=== PATIENT | male | born 1960 | race Caucasian/White ===

== ENCOUNTER → 2016-08-23 | Outpatient (CLI) | payer OTHER ==
[~2016-08-23] MED LIST: HYDR-2666 PO; HYDR12.58 PO; IOHEXOL 180 MG/ML 10 ML VIAL. ONE; LOSA1TAB16 PO; NAPR375T3 PO; methylPREDNISolone ACETATE 40 MG/ML VIAL. ONE; methylPREDNISolone ACETATE 80 MG/ML VIAL. ONE
--- NOTE | 2016-08-24 03:28 | PAIN ---
DATE OF SERVICE: 08/23/2016 INITIAL CONSULTATION CHIEF COMPLAINT: Neck and left upper extremity pain. HISTORY OF PRESENT ILLNESS: This is a 56-year-old male who presents with history of pain for about 3 months, increasing, not a result of any specific injury or accident he is aware of, but occurred more suddenly when he was installing an attic fan, installing the plastic and the insulation on the fan with using his arms up over his head. The patient reports now it is sharp alternating with numbness in the thumb and first and second fingers on his left hand, worse with activity, worse with rotation and motion of the shoulder and the arm and with some moderate weakness in the left arm. He has not been dropping things, but his arm does feel more weaker and fatigability higher in the left arm than the right. The patient reports it awakens him from sleep, at least once or twice at night with pain radiating into the left arm. Does not affect his bowel or bladder control or his ability to walk, but is significantly altering what he can do with his left upper extremity, especially with repetitive motions. The patient reports it radiates into the posterior aspect of the upper arm and to the forearm and hand, again with numbness and tingling in the thumb and first and second fingers on the left side only. The patient reports worse with activity, worse with carrying items, worse with driving if he uses his left arm to steer. The patient did have a CT scan of the cervical spine showing moderately large left paramidline and foraminal disk herniation at C6-C7 and that was on 07/12/2016. The patient reports he has had no other treatments, exercise, physical therapies or chiropractic treatments at this time to treat the pain. He has been taking hydrocodone as well as Naprosyn, which both help decrease the pain by about 50% each. The patient reports his disability rate from 0 to 10, 10 being the worst, it is anywhere from 4-10 with family and home responsibilities, recreation, social activity, occupation, 8 with sexual behavior, 5 with self care and 6 with life support activities. 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 OTHER SURGERIES: Include left ankle surgery with pinning in 1983. CURRENT MEDICATIONS: Include losartan/hydrochlorothiazide, hydrocodone, naproxen. ALLERGIES: The patient is allergic to sulfa. FAMILY HISTORY: Significant for no major medical problems or conditions he is aware of. SOCIAL HISTORY: The patient does not smoke. He stopped drinking alcohol since he started taking naproxen. He is single, lives locally. REVIEW OF SYSTEMS: The patient's review of systems is positive for those items mentioned in the history of present illness, is complete, full and well documented on the patient's chart. All systems reviewed and otherwise negative. PHYSICAL EXAMINATION: VITAL SIGNS: Today, the patient's blood pressure is 164/100, pulse 69, respirations 18, temperature 98.0 degrees Fahrenheit. Height is 6 feet and weight is 223 pounds. GENERAL: The patient is awake, alert, oriented, appropriate, very pleasant demeanor. HEENT: Shows normocephalic, atraumatic. Extraocular movements are intact and symmetrical. Oral cavity shows mucous membranes are moist and pink. Dentition is intact. NECK: Shows anterior throat supple without palpable lymphadenopathy noted. Swallow reflex is symmetrical. CHEST: Shows normal on inspection. Breath sounds are clear to auscultation bilaterally. HEART: Shows S1 and S2 clear. No murmurs are auscultated. ABDOMEN: Soft, nontender, and nondistended. No palpable organomegaly is noted. No rebound or guarding demonstrated. BACK: Shows spine grossly in midline. Cervical lordotic curvature is intact and normal as is thoracic kyphotic curvature and lumbar lordotic curvature. No previous bruises, lesions, rashes or scars are noted. Cervical paraspinous musculature shows symmetrical on inspection, with palpation is moderately tender in the inferior aspect of the cervical paraspinous muscles on the left only, but is not asymmetric without atrophy, hypertrophy noted. No trigger points, no radiation of pain with palpation, muscular girth is normal on palpation bilaterally without atrophy or hypertrophy. The patient does show good rotation and motion of cervical spine, both laterally greater than 45 degrees, close to 90 degrees as well as extension and full forward flexion without exacerbation of pain. EXTREMITIES: Upper extremities show deep tendon reflexes at 2+ in the biceps and triceps tendons. Motor exam is strong with 5/5 [address] patrol pilot strength on the right and 4/5 on the left, bicep and tricep flexion is intact, but 4/5 on the left triceps and 5/5 on the left biceps musculature. Peripheral pulses are 2+, radial distribution. No peripheral edema is noted. No clubbing, no cyanosis. Upper extremities are warm and dry to touch, equal in color and appearance. Shoulder shrug is strong and intact with some minor pain reported in the left shoulder with resistance, but no loss of strength. This is true with 90 degrees of abduction of the shoulders with resistance as well and only pain reported, but no loss of strength on the left side. IMPRESSION: 1. This is a 56-year-old male with approximate 3-month history of increasing pain in the base of the neck, left upper extremity in a radicular fashion. 2. CT scan of cervical spine as noted. 3. History of hypertension. PLAN: Options were discussed with the patient including conservative medical management, physical therapy, and interventional technique. He would like to pursue interventional techniques. We discussed a cervical epidural steroid injection using description as well as anatomical models to describe the procedure. Risks were then discussed including, but not limited to bleeding, infection, possibility of epidural hematoma, subsequent neurological compromise, dural puncture, headaches, spinal cord and/or nerve damage, side effects of steroid medication and poor results regarding pain control. The patient understands and wished to proceed. The patient will return to clinic in approximately 2 weeks for followup. He was counseled as to return appointment, activity level, and side effects to be aware of. DIAGNOSES: Cervical radiculopathy with cervical herniated disk and cervical degenerative disk disease. PROCEDURE: Cervical epidural steroid injection in translaminar approach at the C6-C7 level using C-arm fluoroscopic guidance, under sterile prep and drape using local anesthetic. MEDICATION INJECTED: 120 mg of Depo-Medrol plus 5 mL of preservative-free normal saline and 2 mL of Isovue for contrast. CONDITION AT DISCHARGE: Stable. The patient tolerated the procedure well, had no complications. RYANN COTTON MD DR: BAILEE/reji JOB#: [id number] / [id number] CINDI Lockett MD
== END | disposition home or self-care (01) ==
LOC: PNCL 07:47
PROVIDERS: ATTEND Anesthesiology
DX: M50.123 Cervical disc disorder at C6-C7 level with radiculopathy (principal); I10 Essential (primary) hypertension
CPT/HCPCS: 62321; J1030; J1040

== ENCOUNTER → 2016-09-06 | Outpatient (CLI) | payer OTHER ==
--- NOTE | 2016-09-07 02:32 | PAIN ---
DATE OF SERVICE: 09/06/2016 PROGRESS NOTE FOR PAIN CLINIC. DIAGNOSES: Cervical radiculopathy with cervical herniated disk and cervical degenerative disk disease. HISTORY OF PRESENT ILLNESS: The patient is a 56-year-old male who returns for followup status post cervical epidural steroid injection x 1. The patient reports about 50% improvement after ____ injection, still some pain in the left arm with some numbness and tingling in the hand, but significantly improved in the base of the neck and shoulders. The patient reports he is increasing his activity with the pain is worse with activity still, but increase it to some extent without as much discomfort. The patient reports his pain is at 2-3 on a scale of 10 currently, but he is sleeping well at night using his upper extremities with better ease and comfort, but still some pain and numbness and tingling in the hands involved as previously. The patient reports no new motor or sensory deficits, no new changes. PHYSICAL EXAMINATION: VITAL SIGNS: Today, the patient's blood pressure is 149/109, pulse 83, respirations 18, temperature 98.7 degrees Fahrenheit, height 6 feet, weight is 2-8 pounds. GENERAL: The patient is awake, alert, oriented, appropriate, very pleasant demeanor. HEENT: Shows normocephalic, atraumatic. Extraocular movements are intact and symmetrical. Oral cavity, mucous membranes are moist and pink. Dentition is intact. NECK: Shows anterior throat supple with no palpable lymphadenopathy noted. Swallow reflex is symmetrical. Neck shows good rotation of motion both laterally as well as extension and flexion without exacerbation of pain. CHEST: Shows normal on inspection. Breath sounds are clear to auscultation bilaterally. HEART: Shows S1 and S2 clear. ABDOMEN: Soft, nontender, nondistended. No palpable organomegaly is noted. No rebound or guarding demonstrated. BACK: Shows spine grossly in midline. Cervical paraspinous muscle shows some mild tenderness with palpation in the inferior aspect of the cervical paraspinal musculature on the left as well as into the superior medial and lateral trapezius, but is symmetrical with the right. No tenderness on the right side. No radiation bilaterally. EXTREMITIES: Upper extremities show deep tendon reflexes 2+ in the biceps and triceps tendons. Motor exam is strong with 5/5 felt hanger strength on the right and 4/5 on the left. Options were discussed with the patient and the patient's old chart was reviewed. His current medication regimen updated. Current review of systems updated today as well. We will proceed with a second cervical epidural steroid injection today with fluoroscopic guidance. Risks were again discussed including, but not limited to bleeding, infection, possibility of epidural hematoma and subsequent neurologic compromise, dural puncture, headaches, spinal cord and/or nerve damage, side effects of steroid medication and poor results regarding pain control. The patient understands and wishes to proceed. The patient will return to clinic in approximately 2 weeks for followup, was counseled on return appointment, activity levels and side effects to be aware of. DIAGNOSIS: Cervical radiculopathy with cervical herniated disk and cervical degenerative disk disease. PROCEDURE: Cervical epidural steroid injection using a translaminar approach with C-arm fluoroscopic guidance under sterile prep and drape, at the C6-C7 level with local anesthetic. MEDICATIONS INJECTED: 120 mg Depo-Medrol plus 5 mL of preservative-free normal saline and 2 mL of Isovue for contrast. CONDITION AT DISCHARGE: Stable. The patient tolerated procedure well, had no complications. RYANN COTTON MD DR: BAILEE/reji JOB#: [id number] / [id number]
== END | disposition home or self-care (01) ==
LOC: PNCL 09:15
PROVIDERS: ATTEND Anesthesiology
DX: M50.123 Cervical disc disorder at C6-C7 level with radiculopathy (principal)
CPT/HCPCS: 62321; J1030; J1040

== ENCOUNTER → 2016-11-13 | Outpatient (CLI) | payer OTHER ==
--- NOTE | 2016-11-13 10:28 | PAIN ---
DATE OF SERVICE: 11/13/2016 PROGRESS NOTE FOR PAIN CLINIC DIAGNOSES: Cervical radiculopathy with cervical herniated disk and cervical degenerative disk disease. HISTORY OF PRESENT ILLNESS: The patient is a 56-year-old male, who returns for followup status post cervical epidural steroid injection x 2, last seen on 09/06/2016. The patient did very well with near 8 weeks of 80% improvement on better with pain in his left arm now returning with some tingling in the thumb and first finger. The patient reports otherwise doing fairly well, was very pleased with his progress. He was increasing activity with greater ease and comfort using his left upper extremity without any restrictions and is feeling very well. The patient reports over the last week or so, the pain began to return aching, sharp tight and dull, constant tingling pain in the left hand and arm as well as the base of the shoulder, posterior left upper extremity. The patient reports it came as high as 9 on a scale of 10 with repetitive motion is more normally ____ and it is 3 on a scale of 10 today. The patient reports no new motor or sensory deficits, no new bowel or bladder incontinence or other complaints. PHYSICAL EXAMINATION: VITAL SIGNS: The patient's blood pressure 139/91, pulse 81, respirations are 20, temperature 98.2 degrees Fahrenheit, height is 6 feet, weight is 231 pounds. GENERAL: The patient is awake, alert, oriented, appropriate, very pleasant demeanor. HEENT: Head shows normocephalic, atraumatic. Extraocular movements are intact and symmetrical. Oral cavity shows mucous membranes moist and pink. Dentition is intact. NECK: Shows anterior throat supple without palpable lymphadenopathy noted. Swallow reflex is symmetrical. CHEST: Shows normal on inspection. Breath sounds are clear to auscultation bilaterally. HEART: Shows S1 and S2 clear. ABDOMEN: Soft, nontender, nondistended. No palpable organomegaly, no rebound, guarding demonstrated. BACK: The patient's back shows spine grossly midline. Cervical paraspinous muscle shows some mild tenderness in the cervical paraspinous distribution, but essentially equal bilaterally. There are some increased pain in the lateral trapezius on the left side compared to the right, but again diffusely and only very mild pain. EXTREMITIES: Upper extremities show deep tendon reflexes at 2+ in the biceps and triceps tendons. Motor exam is strong with approximately 5/5 stave planer tender strength on the right and 4/5 on the left, but intact. Biceps and triceps flexion is 5/5 bilaterally. Options were discussed with the patient. The patient's old chart was reviewed as his current medication regimen updated. Current review of systems updated today as well. We will proceed with a third in the series of cervical epidural steroid injection today with fluoroscopic guidance. Risks were again discussed including, but not limited to bleeding, infection, possibility of epidural hematoma and subsequent neurological compromise, dural puncture, headaches, spinal cord and/or nerve damage, side effects of steroid medication and poor results regarding pain control. The patient understands and wishes to proceed. The patient will return to the clinic in approximately 2 weeks for followup, was counseled on return appointment, activity level and side effects to be aware of. DIAGNOSES: Cervical radiculopathy with cervical herniated disk and cervical degenerative disk disease. PROCEDURE: Cervical epidural steroid injection in translaminar approach at C6-C7 level using C-arm fluoroscopic guidance under sterile prep and drape using local anesthetic. MEDICATION INJECTED: Depo-Medrol 120 mg plus 5 mL of preservative-free normal saline and 2 mL of Isovue for contrast. CONDITION AT DISCHARGE: Stable. The patient tolerated the procedure well, had no complications. RYANN COTTON MD DR: BAILEE/reji JOB#: [id number] / [id number]
== END | disposition home or self-care (01) ==
LOC: PNCL 07:49
PROVIDERS: ATTEND Anesthesiology
DX: M50.123 Cervical disc disorder at C6-C7 level with radiculopathy (principal)
CPT/HCPCS: 62321; J1030; J1040